=== PATIENT | female | born 1955 | race Caucasian/White ===

== ENCOUNTER 2016-07-23 16:49 | Emergency (ER) | payer MEDICAID ==
[~2016-07-23] VITALS: Ht 175.3 cm; Wt 73.0 kg
[2016-07-23] MEDS ORDERED: LISINOPRIL (17:04)
[2016-07-23] MEDS ORDERED: GABAPENTIN (17:04)
[2016-07-23] MEDS ORDERED: KETOROLAC 60MG/2ML VIAL IM ONE (18:30)
[2016-07-23 20:40] VITALS: BP 122/75
== END 2016-07-23 21:08 | disposition home or self-care (01) ==
LOC: ER 20:13
DX: M16.12 Unilateral primary osteoarthritis, left hip (principal); E11.9 Type 2 diabetes mellitus without complications; I10 Essential (primary) hypertension; F17.200 Nicotine dependence, unspecified, uncomplicated
CPT/HCPCS: 96372; 99283; J1885